=== PATIENT | female | born 1955 | race Caucasian/White ===

== ENCOUNTER 2016-12-13 11:47 | Emergency (ER) | payer MEDICAID ==
[~2016-12-13] VITALS: Ht 147.3 cm; Wt 72.1 kg
[~2016-12-13 11:47] MED LIST: ALENDRONATE SOD35 M2 PO; LAC PO; LEVAQUIN500 MG PO; MUCINEX DM1 TE1 PO; NAPROXEN250 MG PO; NOR10T PO; OMEPRAZOLE DR20 M1 PO; PROAIR HFA0.09 MG/A1 INH; SIMVASTATIN10 M1 PO; SYNTHROID0.025 MG PO; ZESTRIL20 MG PO
[2016-12-13 14:08] VITALS: BP 128/78
== END 2016-12-13 14:08 | disposition home or self-care (01) ==
LOC: ED 11:47
DX: M79.602 Pain in left arm (principal); I10 Essential (primary) hypertension; R51 Headache; M54.2 Cervicalgia; E03.9 Hypothyroidism, unspecified; Z88.0 Allergy status to penicillin; Z79.899 Other long term (current) drug therapy
CPT/HCPCS: J1885

== ENCOUNTER 2016-12-29 18:17 | Emergency (ER) | payer MEDICAID ==
[~2016-12-29] VITALS: Ht 152.4 cm; Wt 73.0 kg
[2016-12-29 21:45] VITALS: BP 120/69
== END 2016-12-29 21:45 | disposition home or self-care (01) ==
LOC: ED 18:17
DX: B34.9 Viral infection, unspecified (principal); M79.631 Pain in right forearm; E78.00 Pure hypercholesterolemia, unspecified; I10 Essential (primary) hypertension; E07.9 Disorder of thyroid, unspecified; Z88.0 Allergy status to penicillin

== ENCOUNTER 2017-06-12 11:59 | Emergency (ER) | payer MEDICAID ==
[2017-06-12 14:31] LABS: BASOPHIL % 0.4 % (0-2); PLATELET COUNT 298 x10^3mcL (130-400); RED CELL DISTRIBUTION WIDTH 14.3 % (11.5-14.5)
[2017-06-12 14:38] LABS: CALCIUM 9.4 mg/dL (8.5-10.1); CARBON DIOXIDE 30.3 mmol/L (21-32); CHLORIDE SERUM 102 mmol/L (98-107); CREATININE SERUM 0.7 mg/dL (0.6-1.0); GFR1 > 60 mL/min; GLUCOSE SERUM 78 mg/dL (74-106); POTASSIUM SERUM 3.7 mmol/L (3.5-5.1); SODIUM SERUM 138 mmol/L (136-145)
[2017-06-12 14:42] LABS: ALBUMIN 3.8 g/dL (3.4-5.0); ALKALINE PHOSPHATASE 81 U/L (46-116); ALT/SGPT 26 U/L (14-59); AST/SGOT 23 U/L (15-37); BILIRUBIN TOTAL 0.5 mg/dL (0.20-1.00)
[2017-06-12 14:44] LABS: UA SPECIFIC GRAVITY <=1.005 (1.005-1.035); microscopic required? YES; urine erythrocyte NEGATIVE (NEGATIVE)
[2017-06-12 15:40] VITALS: BP 115/62
== END 2017-06-12 15:40 | disposition home or self-care (01) ==
LOC: ED 11:59
PROVIDERS: Emergency Medicine
DX: R53.1 Weakness (principal); R35.0 Frequency of micturition; Z88.0 Allergy status to penicillin; I10 Essential (primary) hypertension; E78.00 Pure hypercholesterolemia, unspecified
CPT/HCPCS: 36415

== ENCOUNTER 2017-12-11 22:01 | Emergency (ER) | payer MEDICAID ==
[~2017-12-11] VITALS: Ht 160 cm; Wt 73.5 kg
[2017-12-11 22:10] VITALS: Ht 160 cm; Wt 73.5 kg
[2017-12-11 22:54] VITALS: BP 151/82
== END 2017-12-11 23:12 | disposition home or self-care (01) ==
LOC: ED 22:01
DX: H11.31 Conjunctival hemorrhage, right eye (principal); R51 Headache